=== PATIENT | female | born 1950 | race Caucasian/White ===

== ENCOUNTER 2021-01-19 12:23 | Observation (INO) | payer MEDICARE, OTHER ==
[~2021-01-19] VITALS: Ht 167.6 cm; Wt 44.5 kg
[~2021-01-19 12:23] MED LIST: PREDNISONE 20 M20 MG PO
[2021-01-19 13:05] LABS: HEMOGLOBIN 9.7 gm/dl (12.3-15.3); RED BLOOD COUNT 4.56 M/UL (4.00-5.10); WHITE BLOOD COUNT 8.8 K/UL (4.5-11.0)
[2021-01-19 13:29] LABS: BUN/CREATININE RATIO 19 (0-10)
[2021-01-19] MEDS ORDERED: PROAIR HFA8.5 GM INH (16:21)
[2021-01-19] MEDS ORDERED: NEURONTIN600 MG PO (16:22)
[2021-01-19] MEDS ORDERED: KLONOPIN TAB 00.5 MG PO (16:22)
[2021-01-19] MEDS ORDERED: SINGULAIR10 MG PO (16:22)
[2021-01-19] MEDS ORDERED: SYNTHROID25 MCG PO ×2 (16:23)
[2021-01-19] MEDS ORDERED: ZESTRIL10 MG PO (16:23)
[2021-01-19] MEDS ORDERED: LOPRESSOR 25 MG25 MG PO (16:24)
[2021-01-19] MEDS ORDERED: PAXIL20 MG PO (16:24)
[2021-01-19] MEDS ORDERED: PROTONIX20 MG PO (16:24)
[2021-01-19] MEDS ORDERED: DALIRESP 500500 MCG PO (16:25)
[2021-01-19] MEDS ORDERED: DILAUDID4 MG PO (16:25)
[2021-01-19] MEDS ORDERED: TRELEGY ELLIPT1 EACH INH (16:25)
[2021-01-19] MEDS ORDERED: ELIQUIS 2.5 MG2.5 MG PO (17:23)
[2021-01-19] MEDS ORDERED: VITAMIN B COMP1 EACH PO (17:24)
[2021-01-19] MEDS ORDERED: MULTIVITAMIN1 EACH PO (17:24)
[2021-01-19] MEDS ORDERED: MAGNESIUM500 MG PO (17:24)
[2021-01-19] MEDS ORDERED: DRISDOL1250 MCG PO (17:24)
[2021-01-20 02:08] LABS: HEMOGLOBIN 8.9 gm/dl (12.3-15.3); RED BLOOD COUNT 4.25 M/UL (4.00-5.10); WHITE BLOOD COUNT 7.4 K/UL (4.5-11.0)
[2021-01-20 02:35] LABS: BUN/CREATININE RATIO 16 (0-10)
[2021-01-20] MEDS ORDERED: FERROUS GLUCON324 M1 PO (09:29)
== END 2021-01-20 15:10 | disposition home or self-care (01) ==
LOC: ER1 12:23 → CDU 16:03 → MED SURG 4 16:03
PROVIDERS: Physician Assistant; ADMIT Internal Medicine
DX: R07.89 Other chest pain (principal); D50.9 Iron deficiency anemia, unspecified; E87.6 Hypokalemia; I48.0 Paroxysmal atrial fibrillation; I10 Essential (primary) hypertension; J44.9 Chronic obstructive pulmonary disease, unspecified; M54.9 Dorsalgia, unspecified; G89.29 Other chronic pain; E03.9 Hypothyroidism, unspecified; F17.210 Nicotine dependence, cigarettes, uncomplicated; K21.9 Gastro-esophageal reflux disease without esophagitis; Z79.01 Long term (current) use of anticoagulants; Z79.891 Long term (current) use of opiate analgesic; Z79.899 Other long term (current) drug therapy; Z20.822 Contact with and (suspected) exposure to COVID-19
CPT/HCPCS: ECHO; 36415; 71045; 80048; 80053; 82550; 82553; 82728; 83540; 83550; 83874; 84484; 85025; 90471; 90686; 93005; 93306; 96372; 96374; 99285; G0378; J1650; J1756; U0002